=== PATIENT | female | born 1930 | race Caucasian/White ===

== ENCOUNTER → 2017-03-29 | Outpatient (CLI) | payer OTHER ==
[~2017-03-29] VITALS: Ht 159.4 cm; Wt 55.8 kg
[~2017-03-29] MED LIST: DYAZIDE, MA1 CAPSULE PO; INDERAL LA120 MG PO; LIPITOR10 MG PO; OMEPRAZOLE40 M1 PO
[2017-03-29 11:42] LABS: MEAN PLAT.VOLUME 12.5 uM^3 (9.5-12.4); PLATELET COUNT 74 K/uL (156-360)
[2017-03-29 12:13] LABS: HEMATOCRIT 29.2 % (36.0-46.0); MCH 28.2 PG (29.0-34.0); MCHC 31.8 G/DL (30.0-36.0); MCV 88.5 FL (83-99); NRBC (%) 0.1 /100 WBC (0-0); RBC DIS.WIDTH-SD 47.8 % (39-53)
[2017-03-29 12:22] LABS: WHITE BLOOD COUNT 69.7 K/uL (4.1-10.2)
== END | disposition home or self-care (01) ==
LOC: AMB 03-28 11:00
PROVIDERS: Anesthesiology
PROC: 0DB38ZX Excision of Lower Esophagus, Via Natural or Artificial Opening Endoscopic, Diagnostic (ICD-10-PCS; principal; 2017-03-29)
DX: K86.2 Cyst of pancreas (principal); R63.4 Abnormal weight loss; K22.70 Barrett's esophagus without dysplasia; Z53.09 Procedure and treatment not carried out because of other contraindication; C91.10 Chronic lymphocytic leukemia of B-cell type not having achieved remission; D69.3 Immune thrombocytopenic purpura; E78.5 Hyperlipidemia, unspecified; G89.29 Other chronic pain; M54.9 Dorsalgia, unspecified; I10 Essential (primary) hypertension; Z82.49 Family history of ischemic heart disease and other diseases of the circulatory system
CPT/HCPCS: 85027; 88305; 93005; C1726; J0330; J1100; J2250; J2405; J2710; J3010